=== PATIENT | female | born 1980 | race Caucasian/White ===

== ENCOUNTER 2019-10-12 15:06 | Emergency (ER) | payer SELFPAY ==
[2019-10-12 15:27] VITALS: BP 130/93; PULSE 125; RESP 18; TEMP 37.7; O2SAT 99; BMI 29.9
[2019-10-12 18:21] LABS: Basophils # 0.1 10^3/uL (0.0-0.1); Basophils % 0.3 %; Eosinophils % 0.2 %; Hematocrit 43.5 % (37.0-47.0); Hemoglobin 14.5 g/dL (11.5-15.3); Lymphocytes # 0.8 10^3/uL (0.8-4.8); Lymphocytes % 3.7 %; Mean Corpuscular HGB Conc 33.3 g/dL (30.0-36.0); Mean Platelet Volume 9.4 fL (7.4-10.4); Monocytes # 0.9 10^3/uL (0.2-0.9); Monocytes % 4.3 %; Neutrophils # 19.83 10^3/uL (1.8-7.7); Neutrophils % 91.1 %; Nucleated Red Blood Cells % 0 %; Platelet Count 367 10^3/cmm (130-400); Red Cell Distribution Width 12.5 % (12.1-15.1); White Blood Count 21.7 10^3/uL (4.0-10.0)
[2019-10-12 18:30] LABS: Alanine Aminotransferase 18 U/L (0-33); Albumin Level 4.5 g/dL (3.5-5.2); Alkaline Phosphatase 79 IU/L (35-105); Anion Gap 14.8 (5-19); Aspartate Amino Transferase 14 U/L (0-32); Blood Urea Nitrogen 12 mg/dL (6-20); Calcium 9.7 mg/dL (8.5-10.5); Carbon Dioxide 22 mmol/L (22-29); Chloride 99 mmol/L (98-107); Globulin 2.9 g/dL (1.3-4.6); Glomerular Filtration Rate 138.8 mL/min (90-130); Glucose 119 mg/dL (65-115); Osmolality Calculated 271 mOsm/kg (285-295); Potassium 3.8 mmol/L (3.5-5.1); Sodium 132 mmol/L (136-145); Total Bilirubin 0.3 mg/dL (0.15-1.2); Total Protein 7.4 g/dL (6.6-8.7)
[2019-10-12 21:11] LABS: Erythrocyte Sedimentation Rate 16 mm/hr (0-15)
== END 2019-10-12 20:44 | disposition left against medical advice (07) ==
PROVIDERS: Emergency Provider Family Medicine; PCP Nurse Practitioner Family
DX: Z53.21 Procedure and treatment not carried out due to patient leaving prior to being seen by health care provider (principal)
CPT/HCPCS: 36415; 80053; 85025; 85651; 99281; 99282

== ENCOUNTER 2020-06-24 18:22 | Emergency (ER) | payer SELFPAY ==
[2020-06-24 18:28] VITALS: BP 147/106; PULSE 106; RESP 14; TEMP 36.7; O2SAT 100; BMI 30.9
--- NOTE | 2020-06-24 18:38 | W.ED.BACK ---
HPI - Back Pain/Injury General: Chief Complaint: Back Pain/Injury Stated Complaint: lower back pain Time Seen by Provider: 06/24/20 18:38 History of Present Illness: HPI Narrative: Patient is a 39-year-old female comes to the ED with lower back pain. Patient says symptoms started this morning when she woke up. Pain is low located in the lower back and on the left side. Any movement causes pain and lifting her left leg causes localized pain in the left side of her lower back. Denies any acute injury or trauma to cause pain. Denies bladder or bowel incontinence, pelvic anesthesia or weakness to lower extremities. Associated symptoms: Deny abdominal pain, chills, dysuria, fatigue, fever(s), hematuria, nausea or vomiting Review of Systems Const: Denies: fever(s), chills or fatigue Eyes: Denies: change in vision or eye discomfort ENMT: Denies: throat pain, odynophagia, nasal discharge or nasal congestion Card: Denies: chest pain, palpitations, edema, swelling of feet/ankles, dyspnea on exertion or orthopnea Resp: Denies: dyspnea, productive cough or non-productive cough GI: Denies: abdominal pain, nausea, vomiting, diarrhea, constipation or hematochezia : Denies: flank pain, dysuria or hematuria Musc: Reports: back pain; Denies: neck pain or extremity swelling Skin/Breast: Denies: rash or new lesions Neuro: Denies: headache(s), numbness in extremities or weakness in extremities PFSH ED PFSH: Social History Smoking and tobacco status: current every day smoker Alcohol intake: current Physical Exam Const: COMMON NORMALS: no acute distress, patient oriented x3, healthy appearing and alert GENERAL APPEARANCE: cooperative and comfortable HENMT: COMMON NORMALS: normocephalic HEAD & SCALP: normocephalic MOUTH: Normal oral and palatal mucosa present THROAT: posterior oropharynx normal and uvula midline Neck/C-Spine: COMMON NORMALS: supple GENERAL: Yes normal visual inspection Resp: COMMON NORMALS: normal respiratory effort, No retractions, No use of accessory muscles and clear to auscultation bilaterally AUSCULTATION: clear to auscultation bilaterally Cardio: COMMON NORMALS: regular rate, regular rhythm, S1 normal heart sound present, S2 normal heart sound present, No gallops present (Cardio), No clicks present (Cardio), No murmurs present (Cardio) and Peripheral pulses 2+ throughout RATE: regular rate RHYTHM: regular rhythm HEART SOUNDS: S1 normal heart sound present and S2 normal heart sound present PERIPHERAL PULSES: Peripheral pulses 2+ throughout GI: COMMON NORMALS: Normal to inspection, nondistended, normoactive bowel sounds present, Soft to palpation, non-tender and no masses PALPATION: Yes Soft to palpation : COMMON NORMALS: Yes no CVA tenderness BLADDER/KIDNEY EXAM: Yes no CVA tenderness Back/Pelvis: COMMON NORMALS: no CVA tenderness LUMBAR SPINE/LOWER BACK: Yes pain with ROM, Yes paraspinal muscle tenderness Lumbar paraspinal muscle tenderness: left left lumbar paraspinal muscle tenderness: L3 and L4 and No straight leg raise positive left Extremity: COMMON NORMALS: normal to inspection Neuro: COMMON NORMALS: patient oriented x3 and moves all extremities SENSORIUM/ORIENTATION: Yes alert Skin: GENERAL SKIN EXAM: dry skin Course Vital Signs: Vital signs: Vital Signs Temperature 98.0 F 06/24/20 18:28 Pulse Rate 65 06/24/20 19:32 Respiratory Rate 14 06/24/20 19:32 Blood Pressure 143/101 06/24/20 19:32 Pulse Oximetry 100 06/24/20 19:32 MDM - Back Pain/Injury MDM Narrative: Medical decision making narrative: Patient is a 39-year-old female comes to the ED with lower back pain. Symptoms started today. Denies any trauma or injury. Denies any cauda equina symptoms. Patient has left paraspinal muscle tenderness and pain in the lower back with range of motion upon exam. No other significant findings. While here in the ED patient received Norflex, Toradol and Solu-Medrol. Patient diagnosed with strain of lumbar region and discharged home with a prescription for ibuprofen and methocarbamol. Return to ED precautions given. Follow-up with PCP in 7 to 10 days. Patient understood and agreed with plan. Discharge Plan Discharge Patient Disposition: Home Clinical Impression: Strain of lumbar region Qualifiers: Encounter type: initial encounter Qualified Code(s): S39.012A - Strain of muscle, fascia and tendon of lower back, initial encounter Condition: Stable Prescriptions: New methocarbamol 750 mg tablet 750 mg PO Q8H Qty: 15 RF: 0 ibuprofen 800 mg tablet 800 mg PO Q8H PRN (Reason: pain) Qty: 21 RF: 0 No Action lisinopril 20 mg tablet 20 mg PO BID RF: 0 azithromycin 250 mg tablet See Rx Instructions PO .COMPLEX Qty: 6 RF: 0 Discharge Orders: Discharge ED (Routine); Ordered 06/24/20 Ordered By: Shahbaz Palencia Referrals: Sandra Odell APN [Primary Care Provider] - Discharge Diet: Regular Discharge Activity: Increase activity as tolerated Patient Instructions: Acute Low Back Pain (ED), Back Pain (ED) Activity Restrictions/Additional Instructions: Follow-up with medical provider as directed in 7-10 days. Take medications as prescribed. Apply ice and/or heat on lower back to help with symptoms. Rest and stretch lower back daily. Limit lifting for the next couple days to allow for healing. Return to the ER or your medical provider if condition worsens. Please read and understand discharge instructions. If any questions, please ask. Coding Level of Care Code ED Crossing Supervisor for Vitor Fwd Exam Comprehensive
[2020-06-24] MEDS: orphenadrine 30 mg/mL Inj 2 mL 60 MG IM (19:23)
[2020-06-24] MEDS: ketorolac 60 mg/2 mL INJ IM (19:23)
[2020-06-24 19:32] VITALS: BP 143/101; PULSE 65; RESP 14; O2SAT 100
== END 2020-06-24 19:33 | disposition home or self-care (01) ==
PROVIDERS: Emergency Provider Physician Assistant; PCP Nurse Practitioner Family
DX: S39.012A Strain of muscle, fascia and tendon of lower back, initial encounter (principal); F17.210 Nicotine dependence, cigarettes, uncomplicated; X58.XXXA Exposure to other specified factors, initial encounter
CPT/HCPCS: 96372; 99283; J1885; J2360; J2930

== ENCOUNTER 2020-09-21 19:10 | Emergency (ER) | payer SELFPAY ==
[2020-09-21 19:15] VITALS: BP 172/116; PULSE 117; RESP 18; TEMP 36.7; O2SAT 100; BMI 30.9
--- NOTE | 2020-09-21 19:27 | W.ED.URI ---
HPI - URI/Sore Throat General: Chief Complaint: Upper Respiratory Infection Stated Complaint: Cough\Throat hurts Time Seen by Provider: 09/21/20 19:17 History of Present Illness: HPI Narrative: Patient is a 40-year-old female comes to the ED with upper respiratory symptoms. Patient says symptoms started approximately 2 days ago. She has been having a sore throat and nasal drainage and congestion. She also reports a dry cough with no sputum production. She has been taking [id number] Mucinex to help with nasal congestion and drainage. She says she usually does not have seasonal allergies and has not taken any allergy meds for current symptoms. Denies any fever or chills, shortness of breath, wheezing, abdominal pain, nausea/vomiting, bladder or bowel symptoms. Associated symptoms: Reports nasal congestion; Deny abdominal pain, chills, chest pain, diarrhea, fever(s), headache(s), nausea or vomiting Review of Systems Const: Denies: fever(s), chills or fatigue Eyes: Denies: change in vision or eye discomfort ENMT: Reports: throat pain, nasal discharge, nasal congestion and post nasal drip; Denies: odynophagia Card: Denies: chest pain, palpitations, edema, swelling of feet/ankles, dyspnea on exertion or orthopnea Resp: Reports: non-productive cough; Denies: dyspnea or productive cough GI: Denies: abdominal pain, nausea, vomiting, diarrhea, constipation or hematochezia : Denies: flank pain, dysuria or hematuria Musc: Denies: neck pain, back pain or extremity swelling Skin/Breast: Denies: rash or new lesions Neuro: Denies: headache(s), numbness in extremities or weakness in extremities PFSH ED PFSH: Social History Smoking and tobacco status: current every day smoker Alcohol intake: current Physical Exam Const: COMMON NORMALS: no acute distress, patient oriented x3 and alert GENERAL APPEARANCE: cooperative and comfortable HENMT: COMMON NORMALS: normocephalic HEAD & SCALP: normocephalic FACE & SINUS: no sinus tenderness NOSE: Nasal discharge present clear Clear nasal discharge laterality: bilateral MOUTH: Normal oral and palatal mucosa present THROAT: uvula midline and posterior oropharynx abnormal cobblestoning and erythema; no exudates Eye: COMMON NORMALS: conjunctivae normal CONJUNCTIVA: Yes conjunctivae normal Neck/C-Spine: COMMON NORMALS: supple GENERAL: Yes normal visual inspection Resp: COMMON NORMALS: normal respiratory effort, No retractions, No use of accessory muscles and clear to auscultation bilaterally EFFORT & INSPECTION: Yes able to speak in complete sentences, No tachypneic, No respiratory distress and No labored AUSCULTATION: clear to auscultation bilaterally Cardio: COMMON NORMALS: regular rate, regular rhythm, S1 normal heart sound present, S2 normal heart sound present, No gallops present (Cardio), No clicks present (Cardio), No murmurs present (Cardio) and Peripheral pulses 2+ throughout RATE: regular rate RHYTHM: regular rhythm HEART SOUNDS: S1 normal heart sound present and S2 normal heart sound present PERIPHERAL PULSES: Peripheral pulses 2+ throughout GI: COMMON NORMALS: Normal to inspection, nondistended, normoactive bowel sounds present, Soft to palpation, non-tender and no masses PALPATION: Yes Soft to palpation : COMMON NORMALS: Yes no CVA tenderness BLADDER/KIDNEY EXAM: Yes no CVA tenderness Back/Pelvis: COMMON NORMALS: no CVA tenderness Extremity: COMMON NORMALS: normal to inspection Neuro: COMMON NORMALS: patient oriented x3 and moves all extremities SENSORIUM/ORIENTATION: Yes alert Skin: GENERAL SKIN EXAM: dry skin Course ED course: Discussed with patient that I had like to do a chest x-ray since patient is having a cough and she refused getting a chest x-ray. I told patient that the chest x-ray when checked for pneumonia. Patient understood and still refused chest x-ray. Vital Signs: Vital signs: Vital Signs Temperature 98.1 F 09/21/20 19:15 Pulse Rate 117 H 09/21/20 19:15 Respiratory Rate 18 09/21/20 19:15 Blood Pressure 172/116 09/21/20 19:15 Pulse Oximetry 100 09/21/20 19:15 MDM - URI/Sore Throat MDM Narrative: Medical decision making narrative: Patient is a 40-year-old female comes to the ED with upper respiratory symptoms for the past 2 days. She has nasal drainage and discharge and a sore throat. She also reports having a dry nonproductive cough. Denies any fevers. Upon exam patient appears in no acute distress and she has some clear nasal discharge and posterior oropharynx has some cobblestoning and erythema. Strep was negative. I wanted to do a chest x-ray on patient but she refused chest x-ray. Patient was diagnosed with upper respiratory infection likely viral. She was discharged home and given a prescription for Flonase to help with nasal congestion. Follow-up with PCP in 7 to 10 days for reevaluation. Return to ED precautions given. Patient understood and agreed with plan. Lab Data: Attestation: I reviewed the patient's lab results. Labs: Lab Results 09/21/20 Range/Units 19:37 Group A Strep Rapi d Negative (Negative) Discharge Plan Discharge Patient Disposition: Home Clinical Impression: Upper respiratory infection, viral Condition: Stable Prescriptions: New Flonase Allergy Relief 50 mcg/actuation spray,suspension 1 spray intranasal DAILY PRN (Reason: nasal congestion) Qty: 16 RF: 0 No Action lisinopril 20 mg tablet 20 mg PO BID RF: 0 azithromycin 250 mg tablet See Rx Instructions PO .COMPLEX Qty: 6 RF: 0 methocarbamol 750 mg tablet 750 mg PO Q8H Qty: 15 RF: 0 ibuprofen 800 mg tablet 800 mg PO Q8H PRN (Reason: pain) Qty: 21 RF: 0 Discharge Orders: Discharge ED (Routine); Ordered 09/21/20 Ordered By: Shahbaz Palencia Referrals: Sandra Odell APN [Primary Care Provider] - Discharge Diet: Regular Discharge Activity: Resume usual activity Patient Instructions: Upper Respiratory Infection (ED) Activity Restrictions/Additional Instructions: Follow-up with medical provider as directed in 7-10 days. Take [id number] Tylenol or Motrin for any fevers. Drink plenty fluids and stay hydrated.. Return to the ER or your medical provider if condition worsens. Please read and understand discharge instructions. Thank you for choosing [facility] for your healthcare needs today. Please realize this is an emergency room and that we are providing you with a medical screening exam and this may not be complete and all inclusive of all the testing and or work up that you may need to determine your ailment or severity of your illness. It is very important that you follow up as instructed or that you return to the Emergency Department should you have concerns or if your condition changes or worsens in any way. Coding Level of Care Code ED Tetryl Nitrator Operator for Vitor Oden Exam Comprehensive
[2020-09-21 19:50] LABS: Rapid Strep A Test Negative (Negative)
== END 2020-09-21 19:22 | disposition home or self-care (01) ==
PROVIDERS: Emergency Provider Physician Assistant; PCP Nurse Practitioner Family
DX: J06.9 Acute upper respiratory infection, unspecified (principal); F17.210 Nicotine dependence, cigarettes, uncomplicated
CPT/HCPCS: 87081; 87880; 99282

== ENCOUNTER → 2021-03-23 17:50 | Outpatient (BNVA) | payer OTHER, SELFPAY | PROVIDERS: PCP Nurse Practitioner Family; Visit Provider Nurse Practitioner | DX: Z20.822 Contact with and (suspected) exposure to COVID-19 (principal) | CPT/HCPCS: 87635 ==

== ENCOUNTER 2021-06-03 16:37 | Emergency (ER) | payer SELFPAY ==
[2021-06-03 17:00] VITALS: BP 159/136; PULSE 115; RESP 16; TEMP 36.4; O2SAT 99; BMI 35.6
--- NOTE | 2021-06-03 17:14 | ED_ITS ---
HPI - Extremity Problem General: Chief complaint: Extremity Injury, Upper Stated complaint: R wrist pain Time Seen by Provider: 06/03/21 17:13 History of Present Illness: Patient presents with bilateral wrist pain. Patient reports worse symptoms on the right wrist instead of the left wrist. Patient also reports increased tenderness with movement of the right thumb. Patient does report some changes in sensations to the third and fourth digit on both hands. Patient appears well. Patient appears no acute distress. Patient works at [email or web address] in. Patient does a lot of repetitive work with her hands. Review of Systems General: Reports: 10 or more systems reviewed and unremarkable except in HPI and below Musc: Reports: joint pain (Bilateral wrist pain) Neuro: Reports: numbness in extremities (Bilateral hands) PFS ED PFSH: Social History Smoking and tobacco status: current every day smoker Alcohol intake: current Physical Exam Const: COMMON NORMALS: alert HENMT: COMMON NORMALS: atraumatic HEAD & SCALP: atraumatic Neck/C-Spine: COMMON NORMALS: full ROM CERVICAL SPINE: No Cervical spine tenderness Resp: COMMON NORMALS: normal respiratory effort Cardio: COMMON NORMALS: regular rate and regular rhythm RATE: regular rate RHYTHM: regular rhythm Extremity: RIGHT UPPER EXTREMITY: Yes wrist (Tenderness over radial styloid) Right wrist: Yes inspection, Yes palpation, Yes ROM and Yes neurovascular exam and Yes hand & digits (Decreased sensation to the third and fourth finger) Right hand and digits: Yes inspection, Yes palpation, Yes ROM exam and Yes neurovascular exam LEFT UPPER EXTREMITY: Yes wrist Left wrist: Yes inspection, Yes palpation, Yes ROM and Yes neurovascular exam and Yes hand & digits (Reports decreased sensation to the third and fourth finger) Left hand and digits: Yes inspection, Yes palpation, Yes ROM, Yes neurovascular exam and Yes tendon exam Neuro: SENSORIUM/ORIENTATION: Yes alert Course Vital Signs: Vital signs: Vital Signs Temperature 97.5 F L 06/03/21 17:00 Pulse Rate 115 H 06/03/21 17:00 Respiratory Rate 16 06/03/21 17:00 Blood Pressure 159/136 06/03/21 17:00 Pulse Oximetry 99 06/03/21 17:00 MDM - Extremity (Nontraumatic) Medical Decision Making Patient comes in today with complaints of right wrist pain and discomfort. On exam patient appears well. Patient has tenderness in the radial styloid on palpation of the wrist with increased pain with movement of the thumb. Patient also reports numbness in the middle finger and fourth digit of both hands. Pain worsens with repetitive movement. 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 Differential diagnosis includes but not limited to carpal tunnel syndrome, de Quervain's tendinitis, arthritis. We will give patient a burst of steroid prednisone 40 mg daily for the next 5 days. Patient will use acetaminophen and ibuprofen for pain relief. We request cost management for follow-up with orthopedics for further evaluation and treatment. Patient reports understanding and agrees with plan. Discharge Plan Discharge Patient Disposition: Home Clinical Impression: Tendinitis, de Quervain's, Bilateral carpal tunnel syndrome Condition: Stable Prescriptions: New prednisone 20 mg tablet 20 mg PO BID 5 Days Qty: 10 0RF No Action lisinopril 20 mg tablet 20 mg PO BID 0RF Flonase Allergy Relief 50 mcg/actuation spray,suspension 1 spray intranasal DAILY PRN (Reason: nasal congestion) Qty: 16 0RF Rx Instructions: administer into each nostril methocarbamol 750 mg tablet 750 mg PO Q8H Qty: 15 0RF ibuprofen 800 mg tablet 800 mg PO Q8H PRN (Reason: pain) Qty: 21 0RF Discharge Orders: Discharge ED (Routine); Ordered 06/03/21 Ordered By: Quentin Lauren Referrals: Sandra Odell APN [Primary Care Provider] - Discharge Diet: Usual diet Discharge Activity: Limit activity as instructed Patient Instructions: Musculoskeletal Pain (ED) Activity Restrictions/Additional Instructions: Home and rest. Activity as tolerated. Use splint to help support rest for comfort. Sometimes it is best to wear the splint for 24 hours a day for approximately 5 to 7 days and then to wear it only at night. You may need to get a splint to help support the thumb in a neutral position better. Use acetaminophen and ibuprofen for pain. Use prednisone for the next 5 days as directed to help decrease inflammation. Drink plenty of water with medications. Follow-up with primary care as needed. Case management will contact you with orthopedic follow-up. Return to ER for new concerns. Coding Level of Care Code ED Air Quality Manager for Vitor Oden
[2021-06-03] MEDS: predniSONE 20 mg Tablet 40 MG PO (17:52)
--- NOTE | 2021-06-04 09:35 | DCPLANNER ---
Addendum entered by Amie Romero 07/11/21 08:22: Patient had a follow up appointment scheduled with ortho - patient did attend appointment. Addendum entered by Amie Romero 06/05/21 14:56: Patient has a follow up appointment scheduled for Friday, June 11, 2021 at 8:[address] Torres at ortho. Clinic will call patient with appointment information. Original Note: consulting manager had message to schedule a follow up appointment for patient with ortho. consulting manager called the ortho clinic, spoke with Regina, gave clinic patients information. consulting manager was told that patients information would be printed and reviewed. Clinic will call patient with appointment information.
== END 2021-06-03 18:03 | disposition home or self-care (01) ==
PROVIDERS: Emergency Provider Nurse Practitioner Family; PCP Nurse Practitioner Family
DX: M65.4 Radial styloid tenosynovitis [de Quervain] (principal); G56.03 Carpal tunnel syndrome, bilateral upper limbs; F17.210 Nicotine dependence, cigarettes, uncomplicated
CPT/HCPCS: 99283; J7512

== ENCOUNTER 2021-06-17 11:15 | Outpatient (CLI) | payer SELFPAY | END 2021-06-17 11:16 | disposition home or self-care (01) | LOC: SPT 11:16 | PROVIDERS: PCP Nurse Practitioner Family; Visit Provider Orthopaedic Surgery | DX: Z46.89 Encounter for fitting and adjustment of other specified devices (principal); M65.4 Radial styloid tenosynovitis [de Quervain] | CPT/HCPCS: L3809 ==

== ENCOUNTER 2021-09-25 12:53 | Emergency (ER) | payer SELFPAY ==
[2021-09-25] VITALS (7 sets, daily range): BP systolic 149–185; BP diastolic 101–123; PULSE 99–113; RESP 18; TEMP 36.6; O2SAT 95–98
--- NOTE | 2021-09-25 13:32 | ECG_ITS ---
[facility] Test Date: 2021-09-25 Pat Name: Dorothy Whitten Department: Room: Gender: Female Cheesemaker Helper: : 1980 Requested By: Shahbaz Palencia Order Number: [id number] Jesus MD: Anton Malik M.D. Measurements Intervals [place] Rate: 98 P: 34 OK: 135 QRS: 37 QRSD: 96 T: 20 QT: 335 QTc: 428 Interpretive Statements SINUS RHYTHM POSSIBLE LEFT ATRIAL ENLARGEMENT [-0.1mV P-WAVE IN V1/V2] POSSIBLE ANTERIOR MYOCARDIAL INFARCTION , PROBABLY OLD [30 ms Q WAVE IN V3/V4, OR R < 0.2 mV IN V4] No previous ECG available for comparison Electronically Signed On 09-25-2021 22:29:52 CDT by Anton Malik M.D. [id number]
--- NOTE | 2021-09-25 13:34 | W.ED.GENADLT ---
HPI - General Adult General: Chief complaint: General Medical Stated complaint: blisters inside bilateral legs Time Seen by Provider: 09/25/21 13:09 History of Present Illness: Patient is a 41-year-old female comes to the ED with multiple complaints. Her 3 main complaints are hemorrhoids, blisters on the legs and elevated blood pressures. She has been having elevated blood pressures first several months now and was previously prescribed diltiazem and lisinopril for hypertension but has not been taking them regularly. She has started taking her blood pressure meds again consistently over the past couple days. She states her systolic blood pressures been in the 150s. Her other complaint is some old superficial blisters on medial aspect of thighs bilaterally. They have whiteheads on them and she states they are not painful. Her complaint of hemorrhoids has been going on now for the past week. She denies any rectal pain or blood in the stools. Her only complaint is that she can feel something sticking out down by her anus when she wipes. Associated symptoms: Reports rash (Small superficial blisters on medial aspect of thighs bilaterally.); Deny chest pain, dyspnea, headache(s), nausea, palpitations or vomiting Review of Systems Const: Denies: fever(s), chills or fatigue Eyes: Denies: change in vision or eye discomfort ENMT: Denies: throat pain, odynophagia, nasal discharge or nasal congestion Card: Denies: chest pain, palpitations, edema, swelling of feet/ankles, dyspnea on exertion or orthopnea Resp: Denies: dyspnea, productive cough or non-productive cough GI: Reports: rectal swelling; Denies: abdominal pain, nausea, vomiting, diarrhea, constipation or hematochezia : Denies: flank pain, dysuria or hematuria Musc: Denies: neck pain, back pain or extremity swelling Skin/Breast: Reports: rash (Small superficial blisters on medial aspect of thighs bilaterally.); Denies: new lesions Neuro: Denies: headache(s), numbness in extremities or weakness in extremities PFSH ED PFSH: Medical History Hypertension No pertinent family history Social History Smoking and tobacco status: current every day smoker Alcohol intake: current Physical Exam Const: COMMON NORMALS: no acute distress, patient oriented x3 and alert GENERAL APPEARANCE: cooperative and comfortable HENMT: COMMON NORMALS: normocephalic HEAD & SCALP: normocephalic MOUTH: Normal oral and palatal mucosa present THROAT: posterior oropharynx normal and uvula midline Neck/C-Spine: COMMON NORMALS: supple GENERAL: Yes normal visual inspection Resp: COMMON NORMALS: normal respiratory effort, No retractions, No use of accessory muscles and clear to auscultation bilaterally AUSCULTATION: clear to auscultation bilaterally Cardio: COMMON NORMALS: regular rate, regular rhythm, S1 normal heart sound present, S2 normal heart sound present, No gallops present (Cardio), No clicks present (Cardio), No murmurs present (Cardio) and Peripheral pulses 2+ throughout RATE: regular rate RHYTHM: regular rhythm HEART SOUNDS: S1 normal heart sound present and S2 normal heart sound present PERIPHERAL PULSES: Peripheral pulses 2+ throughout GI: COMMON NORMALS: Normal to inspection, nondistended, normoactive bowel sounds present, Soft to palpation, non-tender and no masses PALPATION: Yes Soft to palpation OTHER: Rectal exam was performed with female nurse as trash truck driver-patient has skin tag type lesions on anus. No hemorrhoids or bleeding noted. : COMMON NORMALS: Yes no CVA tenderness BLADDER/KIDNEY EXAM: Yes no CVA tenderness Back/Pelvis: COMMON NORMALS: no CVA tenderness Neuro: COMMON NORMALS: patient oriented x3, CN's II-XII intact bilaterally, moves all extremities, no focal motor deficits and no sensory deficits noted SENSORIUM/ORIENTATION: Yes alert SENSORY EXAM: Yes extremities (intact) MOTOR EXAM: 5/5 motor strength present throughout Skin: NARRATIVE SKIN EXAM: Patient has multiple folliculitis lesions on medial aspect of right and left thigh. Nontender to palpation. GENERAL SKIN EXAM: dry skin Course Vital Signs: Vital signs: Vital Signs Temperature 97.9 F 09/25/21 12:59 Pulse Rate 102 H 09/25/21 15:39 Respiratory Rate 18 09/25/21 12:59 Blood Pressure 160/101 09/25/21 15:39 Pulse Oximetry 98 09/25/21 15:39 [facility] - General Adult Medical Decision Making Patient is a 41-year-old female comes to the ED with multiple complaints. Her 3 main complaints are hemorrhoids, blisters on the legs and elevated blood pressures. She has been having elevated blood pressures first several months now and was previously prescribed diltiazem and lisinopril for hypertension but has not been taking them regularly. She has started taking her blood pressure meds again consistently over the past couple days. Vitals are stable patient appears nontoxic and in no acute distress or pain. She has folliculitis lesions on the thigh. Rectal exam shows skin tag type lesions on the rectum. Patient's stable for discharge home and told to follow-up with her PCP in the next week for reevaluation. She was instructed on how to treat the folliculitis. I also sent her with a prescription for some Anusol to see if that helps with the lesions. She was told to continue taking her previously prescribed hypertensive medications to help with symptoms. Return ED precautions given. Patient understood agree with plan. Lab Data I reviewed the patient's lab results. : 09/25/21 14:05 09/25/21 14:05 Laboratory Results WBC 8.7 10^3/uL (4.0-10.0) 09/25/21 14:05 RBC 4.78 10^6/uL (4.1-5.3) 09/25/21 14:05 Hgb 13.4 g/dL (11.5-15.3) 09/25/21 14:05 Hct 39.5 % (37.0-47.0) 09/25/21 14:05 MCV 82.6 fl (81-99) 09/25/21 14:05 MCH 28.0 pg (28.0-34.0) 09/25/21 14:05 MCHC 33.9 g/dL (30.0-36.0) 09/25/21 14:05 RDW 12.3 % (12.1-15.1) 09/25/21 14:05 Plt Count 434 10^3/cmm (130-400) H 09/25/21 14:05 MPV 9.2 fL (7.4-10.4) 09/25/21 14:05 Neut % (Auto) 65.8 % 09/25/21 14:05 Lymph % (Auto) 19.9 % 09/25/21 14:05 [place] % (Auto) 6.9 % 09/25/21 14:05 Eos % (Auto) 6.1 % 09/25/21 14:05 Baso % (Auto) 1.0 % 09/25/21 14:05 Neut # (Auto) 5.74 10^3/uL (1.8-7.7) 09/25/21 14:05 Lymph # (Auto) 1.7 10^3/uL (0.8-4.8) 09/25/21 14:05 [place] # (Auto) 0.6 10^3/uL (0.2-0.9) 09/25/21 14:05 Eos # (Auto) 0.5 10^3/uL (0.0-0.8) 09/25/21 14:05 Baso # (Auto) 0.1 10^3/uL (0.0-0.1) 09/25/21 14:05 Nucleated RBC % (auto) 0 % 09/25/21 14:05 Nucleated RBCs # 0.0 /100WBC 09/25/21 14:05 Sodium 139 mmol/L (136-145) 09/25/21 14:05 Potassium 3.6 mmol/L (3.5-5.1) 09/25/21 14:05 Chloride 103 mmol/L (98-107) 09/25/21 14:05 Carbon Dioxide 25 mmol/L (22-29) 09/25/21 14:05 Anion Gap 14.6 (5-19) 09/25/21 14:05 BUN 13 mg/dL (6-20) 09/25/21 14:05 Creatinine 0.7 mg/dL (0.5-0.9) 09/25/21 14:05 GFR Calculation 93.2 mL/min (90-130) 09/25/21 14:05 Glucose 113 mg/dL (65-115) 09/25/21 14:05 Calculated Osmolality 289 mOsm/kg (285-295) 09/25/21 14:05 Calcium 9.0 mg/dL (8.5-10.5) 09/25/21 14:05 Discharge Plan Discharge Patient Disposition: Home Clinical Impression: Folliculitis, Anal lesion Hypertension Qualifiers: Hypertension type: unspecified Qualified Code(s): I10 - Essential (primary) hypertension Condition: Stable Prescriptions: New Anusol-HC 2.5 % cream with perineal applicator 1 applic [place] BID PRN (Reason: Anal lesions) Qty: 30 0RF No Action lisinopril 20 mg tablet 20 mg PO BID 0RF diltiazem HCl 180 mg capsule,extended release 24hr 180 mg PO DAILY 0RF (DME) thumb spica splint See Rx Instructions .Route .MEDSUPPLY Qty: 1 0RF Rx Instructions: As directed Flonase Allergy Relief 50 mcg/actuation spray,suspension 1 spray intranasal DAILY PRN (Reason: nasal congestion) Qty: 16 0RF Rx Instructions: administer into each nostril ibuprofen 800 mg tablet 800 mg PO Q8H PRN (Reason: pain) Qty: 21 0RF Discharge Orders: Discharge ED (Routine); Ordered 09/25/21 Ordered By: Shahbaz Palencia Referrals: Sandra Odell APN [Primary Care Provider] - Discharge Diet: Regular Discharge Activity: Increase activity as tolerated Patient Instructions: Folliculitis (ED), Hypertension (ED), Sitz Bath (DC) Activity Restrictions/Additional Instructions: Follow-up with medical provider as directed in the next 5 to 7 days reevaluation. Start taking your previously prescribed blood pressure medications daily. Check your blood pressure at home 2-3 times daily and journal results to show PCP at your next visit. Take medications as prescribed. Return to the ER or your medical provider if condition worsens. Please read and understand discharge instructions. Thank you for choosing [facility] for your healthcare needs today. Please realize this is an emergency room and that we are providing you with a medical screening exam and this may not be complete and all inclusive of all the testing and or work up that you may need to determine your ailment or severity of your illness. It is very important that you follow up as instructed or that you return to the Emergency Department should you have concerns or if your condition changes or worsens in any way. Coding Level of Care Code ED Assistant Superintendent For Curriculum for Vitor Fwalka Exam Comprehensive
[2021-09-25 14:27] LABS: Basophils # 0.1 10^3/uL (0.0-0.1); Eosinophils # 0.5 10^3/uL (0.0-0.8); Eosinophils % 6.1 %; Hematocrit 39.5 % (37.0-47.0); Hemoglobin 13.4 g/dL (11.5-15.3); Lymphocytes # 1.7 10^3/uL (0.8-4.8); Lymphocytes % 19.9 %; Mean Corpuscular HGB Conc 33.9 g/dL (30.0-36.0); Mean Corpuscular Volume 82.6 fl (81-99); Mean Platelet Volume 9.2 fL (7.4-10.4); Monocytes # 0.6 10^3/uL (0.2-0.9); Monocytes % 6.9 %; Neutrophils # 5.74 10^3/uL (1.8-7.7); Neutrophils % 65.8 %; Nucleated Red Blood Cells % 0 %; Platelet Count 434 10^3/cmm (130-400); Red Blood Count 4.78 10^6/uL (4.1-5.3); Red Cell Distribution Width 12.3 % (12.1-15.1); White Blood Count 8.7 10^3/uL (4.0-10.0)
[2021-09-25 14:40] LABS: Anion Gap 14.6 (5-19); Blood Urea Nitrogen 13 mg/dL (6-20); Carbon Dioxide 25 mmol/L (22-29); Chloride 103 mmol/L (98-107); Glomerular Filtration Rate 93.2 mL/min (90-130); Glucose 113 mg/dL (65-115); Osmolality Calculated 289 mOsm/kg (285-295); Potassium 3.6 mmol/L (3.5-5.1); Sodium 139 mmol/L (136-145)
== END 2021-09-25 15:15 | disposition home or self-care (01) ==
PROVIDERS: Emergency Provider Physician Assistant; PCP Nurse Practitioner Family
DX: L73.9 Follicular disorder, unspecified (principal); I10 Essential (primary) hypertension; K62.9 Disease of anus and rectum, unspecified; F17.210 Nicotine dependence, cigarettes, uncomplicated
CPT/HCPCS: 80048; 85025; 93005; 99283

== ENCOUNTER 2022-08-14 20:34 | Emergency (ER) | payer SELFPAY ==
[2022-08-14 20:39] VITALS: BP 187/138; PULSE 111; RESP 18; TEMP 36.9; O2SAT 99
[2022-08-14 20:43] VITALS: BP 143/101; PULSE 87; RESP 16; O2SAT 94
--- NOTE | 2022-08-14 21:25 | W.ED.HA ---
HPI - Headache General: Chief Complaint: Headache Stated Complaint: headache x 1 wk Time Seen by Provider: 08/14/22 21:15 History of Present Illness: Patient is a 42-year-old female comes to the ED with a headache. Patient says headache started approximately a week ago. Denies any head injury or trauma to cause headache. She states that the pain is in the back of her head and she rates it currently a 9 out of 10. Endorses nausea and sensitivity to light. Denies any episodes of emesis. She does not have a history of migraines. She went and saw emergency department in [place] 2 days ago and they did a head CT on patient and told her that it was negative and gave patient 2 shots to help with headache, but patient is unsure of what medicine she got. Patient says the 2 shots did not help with headache at all. She denies any neurological symptoms such as vision changes, numbness tingling or weakness to 1 side of her body or face. Associated symptoms: Reports nausea; Deny chest pain, fever(s), rash or vomiting Review of Systems Const: Denies: fever(s), chills or fatigue Eyes: Reports: photophobia; Denies: change in vision or eye discomfort ENMT: Denies: throat pain, odynophagia, nasal discharge or nasal congestion Card: Denies: chest pain, palpitations, edema, swelling of feet/ankles, dyspnea on exertion or orthopnea Resp: Denies: dyspnea, productive cough or non-productive cough GI: Reports: nausea; Denies: abdominal pain, vomiting, diarrhea, constipation or hematochezia : Denies: flank pain, dysuria or hematuria Musc: Denies: neck pain, back pain or extremity swelling Skin/Breast: Denies: rash or new lesions Neuro: Reports: headache(s); Denies: numbness in extremities or weakness in extremities PFS ED PFSH: Medical History Hypertension No pertinent family history Social History Smoking and tobacco status: current every day smoker Alcohol intake: current Substance/Drug Use: never Physical Exam Const: COMMON NORMALS: patient oriented x3 HENMT: COMMON NORMALS: normocephalic HEAD & SCALP: normocephalic MOUTH: Normal oral and palatal mucosa present THROAT: posterior oropharynx normal and uvula midline Eye: COMMON NORMALS: Equal, round and reactive pupils present and EOMs intact bilaterally GENERAL EYE: appearance normal, both eyes and all related structures PUPIL: Yes Equal, round and reactive pupils present Neck/C-Spine: COMMON NORMALS: supple GENERAL: Yes normal visual inspection Lymph: LYMPHATIC: no lymphadenopathy noted Resp: COMMON NORMALS: normal respiratory effort, No retractions, No use of accessory muscles and clear to auscultation bilaterally AUSCULTATION: clear to auscultation bilaterally Cardio: COMMON NORMALS: regular rate, regular rhythm, S1 normal heart sound present, S2 normal heart sound present, No gallops present (Cardio), No clicks present (Cardio), No murmurs present (Cardio) and Peripheral pulses 2+ throughout RATE: regular rate RHYTHM: regular rhythm HEART SOUNDS: S1 normal heart sound present and S2 normal heart sound present PERIPHERAL PULSES: Peripheral pulses 2+ throughout GI: COMMON NORMALS: Normal to inspection, nondistended, normoactive bowel sounds present, Soft to palpation, non-tender and no masses PALPATION: Yes Soft to palpation : COMMON NORMALS: Yes no CVA tenderness BLADDER/KIDNEY EXAM: Yes no CVA tenderness Back/Pelvis: COMMON NORMALS: no CVA tenderness Extremity: GENERAL: Yes normal exam except as noted Neuro: COMMON NORMALS: patient oriented x3, CN's II-XII intact bilaterally, moves all extremities, no focal motor deficits and no sensory deficits noted COORDINATION/BALANCE: [id number] test normal SPEECH: speech normal SENSORY EXAM: Yes extremities (intact) MOTOR EXAM: 5/5 motor strength present throughout COORDINATION: [id number] test normal Skin: COMMON NORMALS: no rashes or lesions noted GENERAL SKIN EXAM: no rashes or lesions noted and dry skin Course Vital Signs: Vital signs: Vital Signs Temperature 98.4 F 08/14/22 20:39 Pulse Rate 81 08/14/22 22:54 Respiratory Rate 14 08/14/22 22:54 Blood Pressure 141/101 08/14/22 22:54 Pulse Oximetry 94 08/14/22 22:54 Oxygen Delivery Me thod Room Air 08/14/22 22:43 MDM - Headache Medical Decision Making Patient is a 42-year-old female comes to the ED with a headache. Patient says headache started approximately a week ago. Denies any head injury or trauma to cause headache. She states that the pain is in the back of her head and she rates it currently a 9 out of 10. Endorses nausea and sensitivity to light. Denies any episodes of emesis. She does not have a history of migraines. She went and saw emergency department in [place] 2 days ago and they did a head CT on patient and told her that it was negative and gave patient 2 shots to help with headache, but patient is unsure of what medicine she got. Patient says the 2 shots did not help with headache at all. She denies any neurological symptoms such as vision changes, numbness tingling or weakness to 1 side of her body or face. Vitals are stable. Exam is benign and neuro exam shows no deficits. Patient was given IV migraine cocktail of fluids, Toradol, Reglan, Benadryl and Decadron in her headache improved greatly. She is diagnosed with a headache. She is stable for discharge home and told to follow-up with her PCP in the next week for reevaluation. Return to ED precautions given. Patient understood agree with plan. Discharge Plan Discharge Patient Disposition: Home Clinical Impression: Headache Condition: Stable Prescriptions: No Action lisinopril 20 mg tablet 20 mg PO BID diltiazem HCl 180 mg capsule,extended release 24hr 180 mg PO DAILY (DME) thumb spica splint See Rx Instructions .Route .MEDSUPPLY Qty: 1 0RF Rx Instructions: As directed Flonase Allergy Relief 50 mcg/actuation spray,suspension 1 spray intranasal DAILY PRN (Reason: nasal congestion) Qty: 16 0RF Rx Instructions: administer into each nostril ibuprofen 800 mg tablet 800 mg PO Q8H PRN (Reason: pain) Qty: 21 0RF Anusol-HC 2.5 % cream with perineal applicator 1 applic [place] BID PRN (Reason: Anal lesions) Qty: 30 0RF Discharge Orders: Discharge ED (Routine); Ordered 08/14/22 Ordered By: Shahbaz Palencia Referrals: Sandra Odell APN [Primary Care Provider] - Discharge Diet: Regular Discharge Activity: Increase activity as tolerated Patient Instructions: Acute Headache (ED) Activity Restrictions/Additional Instructions: Follow-up with medical provider as directed in the next 5 to 7 days for reevaluation. Continue taking all home medications as previously prescribed. Return to the ER or your medical provider if condition worsens. Please read and understand discharge instructions. Thank you for choosing [facility] for your healthcare needs today. Please realize this is an emergency room and that we are providing you with a medical screening exam and this may not be complete and all inclusive of all the testing and or work up that you may need to determine your ailment or severity of your illness. It is very important that you follow up as instructed or that you return to the Emergency Department should you have concerns or if your condition changes or worsens in any way. Coding Level of Care Code ED Agricultural Extension Specialist for Vitor Oden
[2022-08-14] MEDS: sodium chloride 0.9% 1,000 ML 999 ML IV (21:39)
[2022-08-14] MEDS: diphenhydrAMINE 50 mg/mL SDV 1mL 25 MG IVP (21:41)
[2022-08-14] MEDS: metoclopramide 5 mg/mL SDV 2 mL 10 MG IVP (21:41)
[2022-08-14] MEDS: dexamethasone 10 mg/mL INJ IVP (21:41)
[2022-08-14] MEDS: ketorolac 30 mg/mL INJ IVP (21:42)
[2022-08-14 22:43] VITALS: PULSE 80; RESP 16; O2SAT 92
[2022-08-14 22:54] VITALS: BP 141/101; PULSE 81; RESP 14; O2SAT 94
== END 2022-08-14 23:00 | disposition home or self-care (01) ==
PROVIDERS: Emergency Provider Physician Assistant; PCP Nurse Practitioner Family
DX: R51.9 Headache, unspecified (principal); I10 Essential (primary) hypertension; F17.210 Nicotine dependence, cigarettes, uncomplicated
CPT/HCPCS: 96361; 96374; 96375; 99284; J1100; J1200; J1885; J2765; J7030

== ENCOUNTER 2023-08-22 14:29 | Emergency (ER) | payer SELFPAY ==
[2023-08-22 14:34] VITALS: BP 164/104; PULSE 110; RESP 18; TEMP 37.1; O2SAT 100
--- NOTE | 2023-08-22 14:51 | XRR_ITS ---
PROCEDURE INFORMATION: Exam: XR Right Hand Exam date and time: 08/22/2023 3:00 PM Age: 43 years old Clinical indication: Pain; Hand; Right; Additional info: Injury TECHNIQUE: Imaging protocol: Radiologic exam of the right hand. Views: 3 or more views. COMPARISON: No relevant prior studies available. FINDINGS: Bones/joints: Normal. Soft tissues: Normal. XR/XR hand RT min 3V* [id number] IMPRESSION: No acute findings.
--- NOTE | 2023-08-22 14:54 | W.ED.EXTPRO ---
HPI - Extremity Problem General: Chief complaint: Extremity Problem,Nontraumatic Stated complaint: Right hand pain/swelling Time Seen by Provider: 08/22/23 14:51 History of Present Illness: 43-year-old female comes in today for complaints of pain to the right hand. Patient reports awakening this morning with the pain to the hand. Patient appears nontoxic. Patient appears in moderate to severe pain. Review of Systems General: Reports: 10 or more systems reviewed and unremarkable except in HPI and below PFSH ED PFSH: Medical History Hypertension No pertinent family history Social History Smoking and tobacco/nicotine status: current every day tobacco/nicotine user Alcohol intake: current Substance/Drug Use: never Female Reproductive History: Date of last menstrual period: 08/03/23 Physical Exam Const: COMMON NORMALS: alert HENMT: COMMON NORMALS: normocephalic HEAD & SCALP: normocephalic Neck/C-Spine: COMMON NORMALS: full ROM Resp: COMMON NORMALS: normal respiratory effort Cardio: COMMON NORMALS: regular rate RATE: regular rate Back/Pelvis: COMMON NORMALS: thoracic and lumbar spine normal to inspection Extremity: RIGHT UPPER EXTREMITY: Yes hand & digits (Mild redness noted to the palmar MCP joint of the index finger) Right hand and digits: Yes inspection, Yes palpation (Tenderness and mild swelling) and Yes ROM exam (Decreased range of motion due to pain) Neuro: SENSORIUM/ORIENTATION: Yes alert Skin: COMMON NORMALS: turgor normal GENERAL SKIN EXAM: turgor normal Course Vital Signs: Vital signs: Vital Signs Temperature 98.7 F 08/22/23 14:34 Pulse Rate 110 H 08/22/23 14:34 Respiratory Rate 18 08/22/23 14:34 Blood Pressure 164/104 08/22/23 14:34 Pulse Oximetry 100 08/22/23 14:34 Oxygen Delivery Me thod Room Air 08/22/23 14:34 MDM - Extremity (Nontraumatic) Medical Decision Making 43-year-old female comes in today for complaints of pain and discomfort to the right hand. On exam patient has some mild swelling to the palmar aspect of the hand and mild redness noted to the palmar MCP joint area. Decreased range of motion of the digits due to pain. Cap refill is intact. No bruising is noted. Differential diagnosis includes but not limited to tendinitis, arthritis, carpal tunnel syndrome. X-ray noted no fracture. Exam supports most likely a hand tendinitis. Recommended steroids and pain medication to help with discomfort. Recommend follow-up with orthopedics for further evaluation and treatment as needed. Patient reported understanding. Lab Data Radiology Impressions Hand X-Ray 08/22/23 14:51 IMPRESSION: No acute findings. XR interpretation done by ED provider, pending radiology final review Discharge Plan Discharge Patient Disposition: Home Clinical Impression: Right hand tendonitis Condition: Stable Prescriptions: New prednisone 20 mg tablet 20 mg PO BID 5 Days Qty: 10 0RF hydrocodone-acetaminophen 5-325 mg tablet 1 tab PO Q6H PRN (Reason: pain) Qty: 7 0RF No Action lisinopril 20 mg tablet 20 mg PO BID diltiazem HCl 180 mg capsule,extended release 24hr 180 mg PO DAILY (DME) thumb spica splint See Rx Instructions .Route .MEDSUPPLY Qty: 1 0RF Rx Instructions: As directed Flonase Allergy Relief 50 mcg/actuation spray,suspension 1 spray intranasal DAILY PRN (Reason: nasal congestion) Qty: 16 0RF Rx Instructions: administer into each nostril ibuprofen 800 mg tablet 800 mg PO Q8H PRN (Reason: pain) Qty: 21 0RF Anusol-HC 2.5 % cream with perineal applicator 1 applic [place] BID PRN (Reason: Anal lesions) Qty: 30 0RF Discharge Orders: Discharge ED (Routine); Ordered 08/22/23 Ordered By: Quentin Lauren Referrals: Sandra Odell APN [Primary Care Provider] - Discharge Diet: Usual diet Discharge Activity: Increase activity as tolerated Patient Instructions: Tendinitis (ED), Opioid Safety Activity Restrictions/Additional Instructions: Activity as tolerated. Use ice or heat to the area to help with pain. Use acetaminophen ibuprofen for further pain relief. Use hydrocodone for severe pain. Take steroids as directed. Follow-up with orthopedics for further evaluation and treatment. Coding Level of Care Code ED School Bus Driver/Custodian for Vitor Oden
[2023-08-22] MEDS: HYDROcodone-acetaminophen 10-325 mg Tablet 1 TAB PO (15:15)
[2023-08-22 15:56] VITALS: BP 164/104; PULSE 110; RESP 18; TEMP 37.1; O2SAT 100
[2023-08-22] MEDS: dexamethasone 10 mg/mL INJ IM (16:05)
--- NOTE | 2023-08-22 17:35 | DCPLANNER ---
Sent follow up request to [facility] 08/22/23 [id number]
== END 2023-08-22 16:14 | disposition home or self-care (01) ==
PROVIDERS: Emergency Provider Nurse Practitioner Family; PCP Nurse Practitioner Family
DX: M77.8 Other enthesopathies, not elsewhere classified (principal); I10 Essential (primary) hypertension; Z72.0 Tobacco use
CPT/HCPCS: 73130; 96372; 99284; J1100

== ENCOUNTER → 2023-10-13 13:59 | Outpatient (BNVA) | payer OTHER, SELFPAY | PROVIDERS: PCP Nurse Practitioner Family; Referring Provider Nurse Practitioner Family; Visit Provider Specialist | DX: M79.641 Pain in right hand (principal) | CPT/HCPCS: 73130 ==

== ENCOUNTER 2024-01-08 20:25 | Emergency (ER) | payer OTHER, SELFPAY ==
[2024-01-08 20:30] VITALS: BP 170/128; PULSE 115; RESP 22; TEMP 36.8; O2SAT 100; BMI 35.4
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
[2024-01-08 21:50] VITALS: RESP 18
[2024-01-08] MEDS: ondansetron 4 MG Tablet PO (21:50)
[2024-01-08] MEDS: HYDROmorphone 1 mg/mL INJ 1 mL 2 MG IM (21:50)
[2024-01-08 23:02] VITALS: BP 133/83; PULSE 79; O2SAT 92
[2024-01-08 23:51] VITALS: BP 133/83; PULSE 82; O2SAT 91
[2024-01-09] VITALS (12 sets, daily range): BP systolic 95–153; BP diastolic 72–117; PULSE 75–100; O2SAT 91–99
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
--- NOTE | 2024-01-09 00:29 | PC.NURSE ---
Patient and asked why patient was required to be transferred to [facility]' ER; this nurse educated them that physician wanted to patient to be transferred to facility that had her neurologist available.
--- NOTE | 2024-01-09 01:14 | PC.NURSE ---
C-collar was adjusted with 3 staff per request of patient and by verbal instruction of Dr Koo.
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
--- NOTE | 2024-01-09 05:47 | PC.NURSE ---
Patient's O2 levels consistently dropped into high 80s while patient slept. 2L NC applied while patient slept to maintain saturations in the 90s.
== END 2024-01-09 09:12 | disposition home or self-care (01) ==
PROVIDERS: Emergency Provider Emergency Medicine; PCP Nurse Practitioner Family
DX: S12.000A Unspecified displaced fracture of first cervical vertebra, initial encounter for closed fracture (principal); I10 Essential (primary) hypertension; Z72.0 Tobacco use; X50.9XXA Other and unspecified overexertion or strenuous movements or postures, initial encounter
CPT/HCPCS: 72125; 72141; 96372; 99284; J1170; Q0162

== ENCOUNTER 2024-09-26 17:32 | Emergency (ER) | payer SELFPAY ==
[2024-09-26 17:38] VITALS: BP 159/113; PULSE 103; RESP 20; TEMP 36.7; O2SAT 100
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
[2024-09-26 18:11] VITALS: BP 177/113; PULSE 106; RESP 18; TEMP 36.9; O2SAT 100
--- NOTE | 2024-09-26 18:17 | CTR_ITS ---
PROCEDURE INFORMATION: Exam: CT Head Without Contrast Exam date and time: 09/26/2024 6:28 PM Age: 44 years old Clinical indication: Pain; Headache not specified; Additional info: Severe GOLDSTEIN w neck pain TECHNIQUE: Imaging protocol: Computed tomography of the head without contrast. Axial, coronal and sagittal reformatted images were created and reviewed. Radiation optimization: All CT scans at this facility use at least one of these dose optimization techniques: automated exposure control; mA and/or kV adjustment per patient size (includes targeted exams where dose is matched to clinical indication); or iterative reconstruction. COMPARISON: MR cervical spin wo con* [id number] 01/09/2024 6:55 AM RADIATION DOSE METRICS: Total DLP (mGy-cm): 1119.1 FINDINGS: Brain: No CT evidence of acute intracranial hemorrhage or acute territorial infarction. No significant mass effect or midline shift. Basal cisterns patent. Cerebral ventricles: Normal in size and configuration. Paranasal sinuses: Mild polypoid mucosal thickening of the ethmoid air cells and paranasal sinuses. Mastoid air cells: Grossly unremarkable. Bones: Unremarkable. No acute fracture. Soft tissues: Grossly unremarkable. CT/CT head wo con* [id number] IMPRESSION: 1. No CT evidence of acute intracranial pathology. 2. Additional findings, as above.
--- NOTE | 2024-09-26 18:17 | CTR_ITS ---
PROCEDURE INFORMATION: Exam: CT Cervical Spine Without Contrast Exam date and time: 09/26/2024 6:28 PM Age: 44 years old Clinical indication: Neck pain; Additional info: Severe neck pain with h/o c1 FX TECHNIQUE: Imaging protocol: Computed tomography of the cervical spine without contrast. Axial, coronal and sagittal reformatted images were created and reviewed. Radiation optimization: All CT scans at this facility use at least one of these dose optimization techniques: automated exposure control; mA and/or kV adjustment per patient size (includes targeted exams where dose is matched to clinical indication); or iterative reconstruction. COMPARISON: MR cervical spin wo con* [id number] 01/09/2024 6:55 AM RADIATION DOSE METRICS: Total DLP (mGy-cm): 227.6 FINDINGS: Bones: Straightening of the normal cervical lordosis. Old fractures of the bilateral C1 posterior arch. No CT evidence of acute fracture, dislocation or subluxation. Alignment anatomic. Vertebral body heights maintained. Mild multilevel degenerative changes, characterized by disc space narrowing, osteophytosis and uncovertebral and facet joint hypertrophy. Mild multilevel spinal canal and neural foraminal narrowing. Lungs: Lung apices are normal. Soft tissues: Grossly unremarkable. CT/CT cervical spin wo con* [id number] IMPRESSION: 1. No CT evidence of acute cervical spine traumatic injury. 2. Additional findings, as above.
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
[2024-09-26] MEDS: dexamethasone 10 mg/mL INJ 8 MG PO (18:38)
[2024-09-26] MEDS: ketorolac 30 mg/mL INJ IM (18:40)
[2024-09-26] MEDS: ondansetron hcl ODT 4 mg Tab PO (18:40)
[2024-09-26] MEDS: orphenadrine 30 mg/mL Inj 2 mL 60 MG IM (18:40)
[2024-09-26 20:40] VITALS: BP 138/84; PULSE 101; RESP 15; O2SAT 100
== END 2024-09-26 20:43 | disposition home or self-care (01) ==
PROVIDERS: Emergency Provider Physician Assistant; PCP Nurse Practitioner Family
DX: G43.511 Persistent migraine aura without cerebral infarction, intractable, with status migrainosus (principal); Z72.0 Tobacco use; I10 Essential (primary) hypertension
CPT/HCPCS: 70450; 72125; 96372; 99284; J1100; J1885; J2360; Q0162